=== PATIENT | female | born 1985 | race Two or more races ===

== ENCOUNTER 2020-06-26 14:45 | Emergency (ER) | payer MEDICAID, OTHER ==
[~2020-06-26] VITALS: Ht 124.5 cm; Wt 26.3 kg
[2020-06-26 14:50] VITALS: BP 119/82
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
--- NOTE | 2020-06-26 16:12 | NUR ---
LAB IS AT BEDSIDE.
[2020-06-26 16:26] LABS: BASOPHILS % (AUTO) 0.5 % (0.0-2.0); EOSINOPHILS # (AUTO) 0.1 K/uL (0-0.4); HEMATOCRIT 34.7 % (36-48); HEMOGLOBIN 11.6 g/dL (12.0-16.0); LYMPHOCYTES # (AUTO) 2.3 K/uL (2.5-16.5); LYMPHOCYTES % (AUTO) 32.2 % (20.5-51.1); MEAN CORPUSCULAR HEMOGLOBIN 31 pg (27-31); MEAN CORPUSCULAR HGB CONC 34 g/dL (33-37); MEAN CORPUSCULAR VOLUME 91.6 fL (80-94); MONOCYTES # (AUTO) 0.5 K/uL (0.8-1.0); MONOCYTES % (AUTO) 6.7 % (1.7-9.3); NEUTROPHILS # (AUTO) 4.1 K/uL (1.8-7.7); NEUTROPHILS % (AUTO) 58.6 % (42.2-75.2); PLATELET COUNT (AUTO) 245 K/uL (140-450); RED BLOOD CELL COUNT(AUTO) 3.78 MIL/uL (4.20-5.40); RED CELL DISTRIBUTION WIDTH 12.9 % (11.6-13.7)
[2020-06-26 16:38] LABS: APPEARANCE,URINE CLEAR (CLEAR); BILIRUBIN,URINE NEGATIVE (NEGATIVE); BLOOD, URINE NEGATIVE (NEGATIVE); COLOR,URINE YELLOW (YELLOW); LEUKOCYTE ESTERASE ,URINE NEGATIVE (NEGATIVE); NITRITE, URINE NEGATIVE (NEGATIVE); UGLUCOSE NEGATIVE (NEGATIVE)
[2020-06-26 16:46] LABS: CARBON DIOXIDE 23.7 mmol/L (21-32); CREATININE 0.5 mg/dL (0.6-1.3); POTASSIUM 3.7 mmol/L (3.5-5.1); TOTAL BILIRUBIN 0.5 mg/dL (0.0-1.0)
[2020-06-26 17:22] VITALS: BP 107/78
--- NOTE | 2020-06-26 17:22 | NUR ---
Patient discharged with v/s stable. Written and verbal after care instructions given and explained. Patient alert, oriented and verbalized understanding of instructions. Ambulatory with steady gait. All questions addressed prior to discharge. ID band removed. Patient advised to follow up with PMD. Rx of ZOFRAN AND TYLENOL given. Patient educated on indication of medication including possible reaction and side effects. Opportunity to ask questions provided and answered.
== END 2020-06-26 17:22 | disposition home or self-care (01) ==
LOC: MED 14:45 → EDBD 14:45 → MED 17:22
DX: R10.30 Lower abdominal pain, unspecified (principal); R53.1 Weakness; Q99.9 Chromosomal abnormality, unspecified
CPT/HCPCS: 36415; 80053; 81003; 81025; 83690; 84703; 85025; 99283

== ENCOUNTER 2020-12-02 17:44 | Emergency (ER) | payer MEDICAID ==
[~2020-12-02] VITALS: Ht 147.3 cm; Wt 26.3 kg
[2020-12-02 17:53] VITALS: BP 142/65
[2020-12-02] MEDS ORDERED: IBUPROFEN 400 MG TAB PO ONE (18:20)
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
--- NOTE | 2020-12-02 19:31 | NUR ---
PT RETURN FROM XRAY
[2020-12-02] MEDS ORDERED: IBUP-2230 PO (19:49)
[2020-12-02] MEDS ORDERED: KETOROLAC 15 MG/ML VIAL IM ONE (19:50)
--- NOTE | 2020-12-02 19:55 | NUR ---
MEDUICATED PER ERMDS ORDER, TOLERATED WELL.
--- NOTE | 2020-12-02 19:58 | NUR ---
RESULT BACK AND NOTED BY ERMD AND FOR D/C
[2020-12-02 20:25] VITALS: BP 128/70
== END 2020-12-02 20:25 | disposition home or self-care (01) ==
LOC: MED 17:44
DX: S16.1XXA Strain of muscle, fascia and tendon at neck level, initial encounter (principal); V49.9XXA Car occupant (driver) (passenger) injured in unspecified traffic accident, initial encounter; Y93.89 Activity, other specified; Y92.89 Other specified places as the place of occurrence of the external cause; Y99.8 Other external cause status
CPT/HCPCS: 71045; 72040; 73521; 96372; 99284; J1885

== ENCOUNTER 2022-02-25 18:14 | Emergency (ER) | payer MEDICAID ==
[~2022-02-25] VITALS: Ht 124.5 cm; Wt 27.2 kg
[~2022-02-25 18:14] MED LIST: IBUP-2230 PO
[2022-02-25 18:27] VITALS: BP 116/92
[2022-02-25] MEDS ORDERED: OFLO5SOL27 LEFT EAR ×2 (18:59→19:53)
[2022-02-25] MEDS ORDERED: NAPR-54 PO ×2 (18:59→19:53)
[2022-02-25 19:08] VITALS: BP 114/90
--- NOTE | 2022-02-25 19:08 | NUR ---
NO NURSING CARE RENDERED, NO ASSESSMENT DONE.
--- NOTE | 2022-02-25 19:09 | NUR ---
Patient discharged with v/s stable. Written and verbal after care instructions given FOR OTTIS EXTERNA and explained. Patient alert, oriented and verbalized understanding of instructions. Ambulatory with steady gait. All questions addressed prior to discharge. ID band removed. Patient advised to follow up with PMD. Rx of NAPROXEN AND OFLOXACIN given. Patient educated on indication of medication including possible reaction and side effects. Opportunity to ask questions provided and answered.
== END 2022-02-25 19:09 | disposition home or self-care (01) ==
LOC: MED 18:14
DX: H60.92 Unspecified otitis externa, left ear (principal); Z79.1 Long term (current) use of non-steroidal anti-inflammatories (NSAID); Z98.890 Other specified postprocedural states
CPT/HCPCS: 99283

== ENCOUNTER 2022-03-04 10:19 | Emergency (ER) | payer MEDICAID ==
[~2022-03-04] VITALS: Ht 147.3 cm; Wt 27.7 kg
[~2022-03-04 10:19] MED LIST changes: +NAPR-54 PO; +OFLO5SOL27 LEFT EAR
[2022-03-04 10:22] VITALS: BP 122/92
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
[2022-03-04] MEDS ORDERED: ACETAMINOPHEN 325 MG TAB PO ONE (11:30)
--- NOTE | 2022-03-04 11:55 | NUR ---
PT TAKEN TO CT VIA [facility]
--- NOTE | 2022-03-04 12:10 | NUR ---
PT BACK FROM CT VIA [facility]
--- NOTE | 2022-03-04 12:51 | NUR ---
PT MOVED TO ER BED 2
--- NOTE | 2022-03-04 13:31 | NUR ---
XRAY AT PATIENT BEDSIDE
--- NOTE | 2022-03-04 13:38 | NUR ---
XR AT PT BEDSIDE
[2022-03-04] MEDS ORDERED: TYLCODL PO (15:13)
[2022-03-04] MEDS ORDERED: AMOX500C25 PO (15:30)
[2022-03-04 15:33] VITALS: BP 110/71
--- NOTE | 2022-03-04 15:34 | NUR ---
Patient discharged with v/s stable. Written and verbal after care instructions given and explained. Patient alert, oriented and verbalized understanding of instructions. Ambulatory with steady gait. All questions addressed prior to discharge. ID band removed. Patient advised to follow up with PMD. Rx of ACETAMINOPHEN-CODEINE given. Patient educated on indication of medication including possible reaction and side effects. Opportunity to ask questions provided and answered.
== END 2022-03-04 15:34 | disposition home or self-care (01) ==
LOC: MED 10:19
DX: S16.1XXA Strain of muscle, fascia and tendon at neck level, initial encounter (principal); S80.02XA Contusion of left knee, initial encounter; S80.01XA Contusion of right knee, initial encounter; S63.501A Unspecified sprain of right wrist, initial encounter; Z98.890 Other specified postprocedural states; W18.30XA Fall on same level, unspecified, initial encounter; Y93.89 Activity, other specified; Y92.89 Other specified places as the place of occurrence of the external cause; Y99.8 Other external cause status
CPT/HCPCS: 71045; 72125; 72170; 73060; 73100; 73560; 81002; 81025; 99284

== ENCOUNTER 2024-05-17 18:17 | Emergency (ER) | payer MEDICAID, OTHER ==
[~2024-05-17] VITALS: Ht 147.3 cm; Wt 26.3 kg
[~2024-05-17 18:17] MED LIST changes: +AMOX500C25 PO; +NAPR-337 PO; -NAPR-54 PO; +[UNRECOGNIZED DRUG - CODE] PO
[2024-05-17 18:22] VITALS: BP 139/88; PULSE 93; RESP 16; TEMP 98.7; O2SAT 99
[2024-05-17 19:34] VITALS: BP 103/70; PULSE 68; RESP 16; O2SAT 98
[2024-05-17] MEDS: ACETAMINOPHEN EXTRA STRENGTH 500 MG TAB PO ONE (20:14)
[2024-05-17] MEDS ORDERED: IBUP-1842 PO (21:27)
== END 2024-05-17 21:33 | disposition home or self-care (01) ==
LOC: MED 18:17
DX: Q79.9 Congenital malformation of musculoskeletal system, unspecified (principal); M79.621 Pain in right upper arm; M54.2 Cervicalgia; M54.6 Pain in thoracic spine; M25.551 Pain in right hip; M79.604 Pain in right leg; Z79.1 Long term (current) use of non-steroidal anti-inflammatories (NSAID); Z79.2 Long term (current) use of antibiotics; Z79.899 Other long term (current) drug therapy; Z88.8 Allergy status to other drugs, medicaments and biological substances
CPT/HCPCS: 70450; 71250; 72125; 73030; 73060; 73552; 73562; 74176; 81025; 99284; Q0092